=== PATIENT | female | born 1980 | race Caucasian/White ===

== ENCOUNTER 2017-03-15 19:08 | Emergency (ER) | payer SELFPAY ==
--- NOTE | 2017-03-15 19:31 | ER Document Report ---
ED General <MOMO GONZALEZ - Last Filed: 03/15/17 21:49> - General Mode of Arrival: Ambulatory Information source: Patient TRAVEL OUTSIDE OF THE [place] IN LAST 30 DAYS: No - HPI Onset: Just prior to arrival Onset/Duration: Sudden Quality of pain: No pain Severity: Mild Pain Level: Denies Associated symptoms: Shortness of breath Exacerbated by: Denies Relieved by: Denies Similar symptoms previously: Yes Recently seen / treated by doctor: Yes <BÁRBARA BEVERLY - Last Filed: 03/16/17 23:04> - General Chief Complaint: Breathing Difficulty Stated Complaint: DIFFICULTY BREATHING Time Seen by Provider: 03/15/17 19:28 Notes: 36-year-old female who was diagnosed with flu on Thursday but is not taking Tamiflu presents with complaints of sudden shortness of breath prior to arrival. Patient notes shortness of breath lasted about 30 minutes which has since resolved, patient notes that her face Tingling her fingers get tingly feet get tingly. She denies any fevers or chills denies any DVT or PE risk factors (BÁRBARA BEVERLY) - Related Data Allergies/Adverse Reactions: Penicillins Allergy (Verified 03/15/17 19:32) Past Medical History - Social History Smoking Status: Current Every Day Smoker Cigarette use (# per day): Yes Chew tobacco use (# tins/day): No Smoking Education Provided: Yes - Patient counselled regarding cessation for 4 minutes Frequency of alcohol use: None Drug Abuse: None Family History: Reviewed & Not Pertinent Patient has suicidal ideation: No Patient has homicidal ideation: No Renal/ Medical History: Denies: Hx Peritoneal Dialysis <BÁRBARA BEVERLY - Last Filed: 03/16/17 23:04> Review of Systems <MOMO GONZALEZ - Last Filed: 03/15/17 21:49> <BÁRBARA BEVERLY - Last Filed: 03/16/17 23:04> - Review of Systems Notes: REVIEW OF SYSTEMS: CONSTITUTIONAL : Denies fever, chills, or sweats. Denies recent illness. EENT: Denies eye, ear, throat, or mouth pain or symptoms. Denies nasal or sinus congestion or discharge. Denies throat, tongue, or mouth swelling or difficulty swallowing. CARDIOVASCULAR: Denies chest pain. Denies palpitations or racing or irregular heart beat. Denies ankle edema. RESPIRATORY: Admits shortness of breath difficulty breathing GASTROINTESTINAL: Denies abdominal pain or distention. Denies nausea, vomiting , or diarrhea. Denies blood in vomitus, stools, or per rectum. Denies black, tarry stools. Denies constipation. GENITOURINARY: Denies difficulty urinating, painful urination, burning, frequency, blood in urine, or discharge. FEMALE GENITOURINARY: Denies vaginal bleeding, heavy or abnormal periods, irregular periods. Denies vaginal discharge or odor. MUSCULOSKELETAL: Denies back or neck pain or stiffness. Denies joint pain or swelling. SKIN: Denies rash, lesions or sores. HEMATOLOGIC : Denies easy bruising or bleeding. LYMPHATIC: Denies swollen, enlarged glands. NEUROLOGICAL: Admits to tingling in extremities PSYCHIATRIC: Denies anxiety or stress. Denies depression, suicidal ideation, or homicidal ideation. ALL OTHER SYSTEMS REVIEWED AND NEGATIVE. PHYSICAL EXAMINATION: GENERAL: Well-appearing, well-nourished and in no acute distress. HEAD: Atraumatic, normocephalic. EYES: Pupils equal round and reactive to light, extraocular movements intact, conjunctiva are normal. ENT: Nares patent, oropharynx clear without exudates. Moist mucous membranes. NECK: Normal range of motion, supple without lymphadenopathy LUNGS: Breath sounds clear to auscultation bilaterally and equal. No wheezes rales or rhonchi. HEART: Tachycardic ABDOMEN: Soft, nontender, nondistended abdomen. No guarding, no rebound. No masses appreciated. Female : deferred Musculoskeletal: Normal range of motion, no pitting or edema. No cyanosis. NEUROLOGICAL: Cranial nerves grossly intact. Normal speech, normal gait. Normal sensory, motor exams PSYCH: Anxious SKIN: Warm, Dry, normal turgor, no rashes or lesions noted. Dictation was performed using [employer] voice recognition software (BÁRBARA BEVERLY) - Vital signs Vitals: Temp Pulse Resp BP Pulse Ox 98.4 F 110 H 24 H 132/93 H 100 03/15/17 19:13 03/15/17 19:13 03/15/17 19:13 03/15/17 19:13 03/15/17 19:13 Course - Laboratory Result Diagrams: 03/15/17 20:15 03/15/17 20:15 <MOMO GONZALEZ - Last Filed: 03/15/17 21:49> - Laboratory Result Diagrams: 03/15/17 20:15 03/15/17 20:15 - Diagnostic Test Radiology reviewed: Image reviewed, Reports reviewed <BÁRBARA BEVERLY - Last Filed: 03/16/17 23:04> - Re-evaluation Re-evalutation: 03/15/17 20:00 Patient's presentation is consistent with a panic attack, her age she is satting 100% on room air but was noted to be tachypneic tachycardic on arrival but has since resolved 03/16/17 23:03 Due to elevated d-dimer a CTA was performed, this noted atypical pneumonia versus multiple nodules, patient given follow-up with pulmonology Otherwise patient looks well is in no distress will be discharged home as vital signs are stable After performing a Medical Screening Examination, I estimate there is LOW risk for ACUTE CORONARY SYNDROME, PULMONARY EMBOLI, RESPIRATORY FAILURE, SEPSIS OR MENINGITIS, thus I consider the discharge disposition reasonable. I have reevaluated this patient multiple times and no significant life threatening changes are noted. The patient and I have discussed the diagnosis and risks, and we agree with discharging home with close follow-up. We also discussed returning to the Emergency Department immediately if new or worsening symptoms occur. We have discussed the symptoms which are most concerning (e.g., changing or worsening pain, trouble swallowing or breathing, neck stiffness, fever) that necessitate immediate return. (BÁRBARA BEVERLY) - Vital Signs Vital signs: Temp Pulse Resp BP Pulse Ox 97.7 F 92 18 124/75 99 03/15/17 20:27 03/15/17 20:27 03/15/17 20:27 03/15/17 20:27 03/15/17 20:27 - Laboratory Laboratory results interpreted by me: 03/15/17 03/15/17 03/15/17 20:15 20:15 20:15 WBC 12.6 H Monocytes % (Manual) 20 H Abs Monocytes (Manual) 2.5 H D-Dimer 0.72 H Sodium 145.6 H Chloride 108 H AST 117 H ALT 124 H Discharge <MOMO GONZALEZ - Last Filed: 03/15/17 21:49> <BÁRBARA BEVERLY - Last Filed: 03/16/17 23:04> - Discharge Clinical Impression: Shortness of breath, Panic attack, POST INFLUENZA PNEUMONIA Condition: Stable Disposition: HOME, SELF-CARE Instructions: Anxiety ([facility]), Pneumonia ([facility]), Quinolone Antibiotics ([facility]) Additional Instructions: Follow up with your physician tomorrow for further care or return to the ED IMMEDIATELY if symptoms worsen or new concerns occur. If you cannot afford to follow up with your primary care physician a list of low cost clinics have been provided at the end of your discharge papers as well. Prescriptions: Levofloxacin [Levaquin 500 mg Tablet] 500 mg PO DAILY #10 tablet Forms: Return to Work Referrals: SRINIVASA SOUTH MD [ACTIVE STAFF] - Follow up in 3-5 days (call for appointment)
[2017-03-15 20:29] VITALS: BP 124/75
--- NOTE | 2017-03-15 20:33 | RADIOLOGY REPORT (SQ) ---
EXAM DESCRIPTION: CHEST PA/LAT COMPLETED DATE/TIME: 03/15/2017 8:16 pm REASON FOR STUDY: sob COMPARISON: None. TECHNIQUE: Frontal and lateral radiographic views of the chest acquired. NUMBER OF VIEWS: Two view. LIMITATIONS: None. FINDINGS: LUNGS AND PLEURA: No opacities, masses or pneumothorax. No pleural effusion. MEDIASTINUM AND HILAR STRUCTURES: No masses or contour abnormalities. HEART AND VASCULAR STRUCTURES: Heart normal size. No evidence for failure. BONES: No acute findings. HARDWARE: None in the chest. OTHER: No other significant finding. IMPRESSION: NO SIGNIFICANT RADIOGRAPHIC FINDING IN THE CHEST. TECHNICAL DOCUMENTATION: JOB ID: [id number] [employer]- All Rights Reserved
[2017-03-15 21:09] LABS: ALANINE AMINOTRANSFERASE 124 U/L (9-52); ALBUMIN 4.4 g/dL (3.5-5.0); ALKALINE PHOSPHATASE 102 U/L (38-126); ANION GAP 9 (5-19); ASPARTATE AMINO TRANSFERASE 117 U/L (14-36); BILIRUBIN,DIRECT 0.3 mg/dL (0.0-0.4); BILIRUBIN,TOTAL 0.4 mg/dL (0.2-1.3); BLOOD UREA NITROGEN 8 mg/dL (7-20); CALCIUM 9.5 mg/dL (8.4-10.2); CARBON DIOXIDE 29 mmol/L (22-30); CHLORIDE 108 mmol/L (98-107); GLUCOSE 85 mg/dL (75-110); SODIUM 145.6 mmol/L (137-145); TOTAL PROTEIN 7.7 g/dL (6.3-8.2)
[2017-03-15 21:15] LABS: HEMATOCRIT 44.5 % (36.0-47.0); HEMOGLOBIN 14.7 g/dL (12.0-15.5); MEAN CORPUSCULAR HEMOGLOBIN 28.7 pg (27.0-33.4); MEAN CORPUSCULAR HGB CONC 33.1 g/dL (32.0-36.0); MEAN CORPUSCULAR VOLUME 87 fl (80-97); PLATELET COUNT 168 10^3/uL (150-450); RED BLOOD COUNT 5.13 10^6/uL (3.72-5.28); RED CELL DISTRIBUTION WIDTH 13.4 % (11.5-14.0); WHITE BLOOD COUNT 12.6 10^3/uL (4.0-10.5)
--- NOTE | 2017-03-15 21:33 | RADIOLOGY REPORT (SQ) ---
EXAM DESCRIPTION: CTA CHEST COMPLETED DATE/TIME: 03/15/2017 9:17 pm REASON FOR STUDY: sob COMPARISON: Radiographs. TECHNIQUE: CT scan of the chest performed using helical scanning technique with dynamic intravenous contrast injection. Images reviewed with lung, soft tissue and bone windows. Reconstructed coronal and sagittal MPR images reviewed. Additional 3 dimensional post-processing performed to develop Maximal Intensity Projection images ([place] P). All images stored on PACS. All CT scanners at this facility use dose modulation, iterative reconstruction, and/or weight based d osing when appropriate to reduce radiation dose to as low as reasonably achievable ([place]ARA). [facility]: Dose Right [facility]: CareDose [facility]: Dose Right [facility]: Teradose 4D [facility]: [employer] CONTRAST TYPE AND DOSE: contrast/concentration: Isovue 370.00 mg/ml; Total Contrast Delivered: 71.0 ml; Total Saline Delivered: 110.1 ml Contrast bolus adequate for pulmonary arteries and aorta. RENAL FUNCTION: None required. The patient is less than 50 years old. RADIATION DOSE: CT Rad equipment meets quality standard of care and radiation dose reduction techniq ues were employed. CTDIvol: 13.2 - 15.0 mGy. DLP: 581 mGy-cm. . LIMITATIONS: None. FINDINGS: LUNGS AND PLEURA: Faint nodular infiltrates in the right lung. Most notable in the right upper lobe and peripheral subpleural multifocal right lower lobe. Some of the infiltrates have a rel atively "Tree-in-bud" configuration suggesting atypical mycobacterial or fungal infection. Chronicit y and significance otherwise indeterminate. No consolidating pneumonia. No pleural disease. AORTA AND GREAT VESSELS: No aneurysm. Contrast bolus not optimized for the aorta. HEART: No pericardial effusion. No significant coronary artery calcifications. PULMONARY ARTERIES: No emboli visualized in the main pulmonary arteries or the segmental branches. HILAR AND MEDIASTINAL STRUCTURES: Small nodes. No abnormally enlarged nodes appreciated. HARDWARE: None in the chest. UPPER ABDOMEN: No significant findings. Limited exam. THYROID AND OTHER SOFT TISSUES: No masses. No adenopathy. BONES: No acute or significant finding. 3D MIPS: Confirm above findings. OTHER: No other significant finding. IMPRESSION: 1. Multifocal right lung nodular infiltrates suggestive of atypical infection. 2. No pu lmonary embolus. No aortic disease. Otherwise clear lungs. COMMENT: Quality ID # [id number]: Final reports with documentation of one or more dose reduction techniques (e.g., Automated exposure control, adjustment of the mA and/or kV according to patient size, use of iterative reconstruction technique) TECHNICAL DOCUMENTATION: JOB ID: [id number] [employer]- All Rights Reserved
[2017-03-15 21:42] LABS: ABSOLUTE LYMPHOCYTES# (MANUAL) 4.2 10^3/uL (0.5-4.7); ABSOLUTE MONOCYTES # (MANUAL) 2.5 10^3/uL (0.1-1.4); ABSOLUTE NEUTROPHILS# (MANUAL) 5.8 10^3/uL (1.7-8.2); BASOPHILS % (MANUAL) 0 % (0-2); EOSINOPHILS % (MANUAL) 1 % (0-6); LYMPHOCYTES % (MANUAL) 33 % (13-45); MONOCYTES % (MANUAL) 20 % (3-13); SEGMENTED NEUTROPHILS % (MAN) 46 % (42-78); TOTAL CELLS COUNTED 100
[2017-03-15 21:45] LABS: PLATELET COMMENT ADEQUATE; RBC MORPHOLOGY COMMENT NORMO-CYTIC/CHROMIC
[2017-03-15] MEDS ORDERED: LEVOFLOXACIN 500 MG TABLET PO ONE (22:08)
== END 2017-03-15 22:17 | disposition home or self-care (01) ==
LOC: ER 19:08
DX: R06.02 Shortness of breath (principal); F41.0 Panic disorder [episodic paroxysmal anxiety]; J18.9 Pneumonia, unspecified organism; R06.00 Dyspnea, unspecified; F17.210 Nicotine dependence, cigarettes, uncomplicated; Z88.0 Allergy status to penicillin
CPT/HCPCS: 36415; 71046; 71275; 80053; 85025; 85379; 99285